=== PATIENT | female | born 1945 | race Caucasian/White ===

== ENCOUNTER 2017-12-19 11:18 | Day surgery (SDC) | payer OTHER, BC ==
[2017-12-19] MEDS ORDERED: ceFAZolin 2 GM/SWFI 2 GM/20 ML SYR IVP ONE (11:48)
[2017-12-19] MEDS ORDERED: LR 1,000 ML IV ONE (11:50)
[2017-12-19] MEDS ORDERED: LIDOCAINE 1% 2 ML INJ ID PRN (11:50)
[2017-12-19] MEDS ORDERED: BUPIVACAINE 0.25% 30 ML SDV ONE (11:56)
[2017-12-19] MEDS ORDERED: IOTHALAMATE MEG (CONRAY) 50 ML VIAL IV ONE (11:57)
[2017-12-19] MEDS ORDERED: MIDAZOLAM 2 MG/2 ML VIAL IVP ONE (12:36)
--- NOTE | 2017-12-19 12:36 | PDHPUP ---
History & Physical Update H&P update statement: This history and physical update is based on an assessment of the patient which was completed after admission or registration (within 24 hours), but prior to the surgery/procedure. H&P update: H&P reviewed & patient examined, no change in patient's condition since H&P completed
--- NOTE | 2017-12-19 12:36 | PDANEPAE ---
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 - Neurologic History Hx Cerebrovascular Accident: No Hx Seizures: No Hx Dementia: No - Endocrine History Hx Diabetes: No - Renal History Hx Renal Disorders: No - Liver History Hx Hepatic Disorders: No - Neurological & Psychiatric Hx Hx Neurological and Psychiatric Disorders: Yes Neurological / Psychiatric History Comment: depression - Cancer History Hx Cancer: Yes Cancer History Comment: breast - Congenital Disorder History Hx Congenital Disorders: No - GI History Hx Gastrointestinal Disorders: Yes Gastrointestinal History Comment: gall bladder symptoms - Other Health History Other Health History: prosthetic eye - Chronic Pain History Chronic Pain: Yes (left knee) - Surgical History Prior Surgeries: lumpectomy,bilat mastectomy. ANE Review of Systems Review of systems is: negative Review of Systems: - Exercise capacity METS (RN): 4 METS ANE Patient History - Allergies Allergies/Adverse Reactions: No Known Allergies Allergy (Verified 12/18/17 16:42) - Home Medications Home medications: home medication list seen and reviewed Home Medications: Aspirin [Aspirin 81mg] 06/24/11 [Last Taken 1 Year Ago ~12/19/16] Fluticasone Nasal [Flonase nasal spray] 06/24/11 [Last Taken 3 Weeks Ago ~11/28] Hydrochlorothiazide [HCTZ (*)] 06/24/11 [Last Taken 1 Day Ago ~12/18/17] Calcium 600 + Vit D 400 Softgl 12/18/17 [Last Taken 1 Day Ago ~12/18/17] Glucosamine Chondroitin Caplet 12/18/17 [Last Taken 1 Day Ago ~12/18/17] Multivitamin (*) 12/18/17 [Last Taken 1 Day Ago ~12/18/17] Vitamin C 12/18/17 [Last Taken 1 Day Ago ~12/18/17] FLUoxetine [PROzac] 20 mg PO BID 12/19/17 [Last Taken 12/19/17] - NPO status NPO Since - Liquids (Date): 12/19/17 NPO Since - Liquids (Time): 09:30 NPO Since - Solids (Date): 12/18/17 NPO Since - Solids (Time): 20:00 - Anes Hx Anes Hx: no prior problems - Smoking Hx Smoking Status: Former smoker - Family Anes Hx Family Anes Hx: none Family Hx Anesthesia Complications: none ANE Labs/Vital Signs - Vital Signs Blood Pressure: 134/71 Heart Rate: 60 Respiratory Rate: 16 O2 Sat (%): 95 Height: 167.64 cm Weight: 76.657 kg ANE Physical Exam - Airway Neck exam: FROM Mallampati Score: Class 3 Mouth exam: normal dental/mouth exam - Pulmonary Pulmonary: no respiratory distress - Cardiovascular Cardiovascular: regular rate and rhythym - ASA Status ASA Status: II ANE Anesthesia Plan Anesthesia Plan: general endotracheal anesthesia
[2017-12-19] MEDS ORDERED: ROCURONIUM 50 MG/5 ML VIAL ONE (12:57)
[2017-12-19] MEDS ORDERED: LIDOCAINE 2% 100 MG/5 ML SYR ONE (12:57)
[2017-12-19] MEDS ORDERED: DEXAMETHASONE 4 MG/ML VIAL ONE (12:57)
[2017-12-19] MEDS ORDERED: fentaNYL 250 MCG/5 ML INJ ONE (12:57)
[2017-12-19] MEDS ORDERED: SUGAMMADEX SODIUM 200 MG/2 ML VIAL IVP ONE (12:57)
[2017-12-19] MEDS ORDERED: ONDANSETRON 4 MG/2 ML VIAL ONE (12:57)
[2017-12-19] MEDS ORDERED: PROPOFOL 200 MG/20 ML VIAL ONE (12:57)
[2017-12-19] MEDS ORDERED: PROMETHAZINE HCL 25 MG/ML INJ IVP PRN (14:13)
[2017-12-19] MEDS ORDERED: MEPERIDINE 25 MG/ML SYR IVP PRN (14:13)
[2017-12-19] MEDS ORDERED: DEXAMETHASONE 4 MG/ML VIAL IVP PRN (14:13)
[2017-12-19] MEDS ORDERED: NALOXONE HCL 0.4 MG/ML INJ IVP PRN (14:13)
[2017-12-19] MEDS ORDERED: HYDROCODONE/APAP 5/325 TAB PO PRN ×2 (14:13→14:29)
[2017-12-19] MEDS ORDERED: ONDANSETRON 4 MG/2 ML VIAL IVP PRN (14:13)
[2017-12-19] MEDS ORDERED: oxyCODONE IR 5 MG TAB PO PRN (14:13)
[2017-12-19] MEDS ORDERED: HYDROmorphONE/DILAUDID 2 MG/ML INJ IVP PRN (14:13)
[2017-12-19] MEDS ORDERED: ACETAMINOPHEN 500 MG TAB PO PRN (14:13)
[2017-12-19] MEDS ORDERED: fentaNYL 100 MCG/2 ML INJ IVP PRN (14:13)
--- NOTE | 2017-12-19 14:15 | POSTANESTH ---
Post Anesthetic Evaluation Cardiovascular Status: Normal, Stable, Similar to Pre-Op Cond Respiratory Status: Normal, Stable Level of Consciousness/Mental Status: Can Participate in Eval Pain Control: Adequate, Prn Tx Ordered Nausea/Vomiting Control: Adequate, Prn Tx Ordered Complications Possibly Related to Anesthesia: None Noted
--- NOTE | 2017-12-19 14:26 | POSTOPPROG ---
Post Op Note Date of Operation: 12/19/17 Surgeon: Mendez Cruz (, FACS) [employer] Developer: Mallika aGrner RN-FA Anesthesiologist: Vicente Dennis MD Anesthesia: GET(General Endotracheal) Pre-op Diagnosis: cholecystitis, chronic Post-op Diagnosis: same Procedure: lap cholecystectomy Findings: chronic cholecystitis Inf/Abcess present in the surg proc area at time of surgery?: No Depth: Superfical (Skin SQ) EBL: Minimal
[2017-12-19] MEDS ORDERED: ONDANSETRON DISINTEGRATING 4 MG TAB PO PRN (14:29)
[2017-12-19] MEDS ORDERED: fentaNYL 100 MCG/2 ML INJ ONE (15:11)
--- NOTE | 2017-12-19 15:11 | GOP ---
[f rep st] OPERATIVE REPORT DATE OF OPERATION: SURGEON: Mendez Cruz MD, FACS SULFUR BURNER: MARY Victor ANESTHESIA: General endotracheal. ANESTHESIOLOGIST: Vicente Dennis MD PREOPERATIVE DIAGNOSIS: Cholelithiasis and chronic cholecystitis. POSTOPERATIVE DIAGNOSIS: Cholelithiasis and chronic cholecystitis. PROCEDURE PERFORMED: Laparoscopic cholecystectomy. FINDINGS: Mild chronic cholecystitis, hepatic steatosis. No significant intraabdominal adhesions. ESTIMATED BLOOD LOSS: 25 mL. DESCRIPTION OF PROCEDURE: After informed consent was obtained, the patient was brought to the operating room and placed under general anesthesia. The abdomen was prepped and draped in usual fashion. Before proceeding, a time-out identification of the patient was performed. 0.25% Marcaine was used to infiltrate all incision sites. A transverse incision was made below the base of the umbilicus and carried through skin and subcutaneous tissues. Ventral traction was applied to the abdominal wall with a penetrating towel clamp, and a Veress needle was introduced into the peritoneal cavity. Position was confirmed by saline infusion. A pneumoperitoneum was established with CO2 gas to a pressure of 15 mmHg. The Veress needle was withdrawn and replaced with a 12 mm bladeless trocar. A 30 degree 10 mm scope was introduced and the peritoneal cavity was visualized. Additional 5 mm ports were placed in the subxiphoid position to the right of the falciform ligament, in the right upper quadrant midclavicular line, and right upper quadrant anterior axillary line. This allowed introduction of atraumatic grasping forceps. The gallbladder was grasped by the fundus and retracted cephalad, elevating the liver edge. Omental adhesions to the gallbladder were taken down with the Harmonic Scalpel. The infundibulum of the gallbladder was grasped and manipulated anteriorly and posteriorly, allowing dissection of the peritoneum off the cystic duct. The cystic artery presented posteriorly, and this was dispatched with the Harmonic Scalpel. The cystic duct was hemoclipped and divided, and the gallbladder dissected away from the liver edge using the Harmonic Scalpel, with minimal bleeding. The gallbladder was retrieved through the umbilical port site, noted to contain multiple small stones. It was submitted intact for permanent section. Subhepatic space was irrigated and aspirated. Hemostasis appeared secure. The umbilical fascial defect was repaired with a transfascial closure needle and 0 Vicryl suture. The pneumoperitoneum was evacuated. The remaining ports were removed. Subcutaneous tissues were approximated with 3-0 Monocryl suture. Skin was closed with 4-0 Monocryl suture in a subcuticular fashion. Needle, sponge, and instrument count were correct. COMPLICATIONS: None. /[id number]/MODL MTDD
[2017-12-19 18:13] VITALS: BP 127/73
== END 2017-12-19 18:12 | disposition home or self-care (01) ==
LOC: FSGY 11:18
PROVIDERS: ATTEND Surgery
PROC: 0FT44ZZ Resection of Gallbladder, Percutaneous Endoscopic Approach (ICD-10-PCS; principal; 2017-12-19 12:45)
DX: K80.10 Calculus of gallbladder with chronic cholecystitis without obstruction (principal); K76.0 Fatty (change of) liver, not elsewhere classified; I10 Essential (primary) hypertension; Z85.3 Personal history of malignant neoplasm of breast; Z90.13 Acquired absence of bilateral breasts and nipples
CPT/HCPCS: J0690; J1100; J2001; J2250; J2405; J2704; J3010; Q9961